=== PATIENT | female | born 1950 | race Hispanic/Latino ===

== ENCOUNTER 2018-02-24 07:04 | Day surgery (SDC) | payer MEDICARE, BC ==
[2016-07-03 08:42] VITALS: BMI 20.6
[2018-02-24] MEDS ORDERED: Propofol 10 mg/ml Inj (20 ML) ONE ×2 (08:33→08:54)
[2018-02-24 08:39] VITALS: O2SAT 100
[2018-02-24] MEDS ORDERED: Sodium Chloride 0.9% 1,000 ML IV SCH (09:30)
[2018-02-24 10:46] VITALS: BP 122/72; PULSE 64; RESP 16; TEMP 97.6
== END 2018-02-24 10:35 | disposition home or self-care (01) ==
LOC: ENDO 07:04
PROVIDERS: ATTEND Specialist
DX: Z12.11 Encounter for screening for malignant neoplasm of colon (principal); K63.5 Polyp of colon; Z86.010 Personal history of colon polyps; K64.8 Other hemorrhoids
CPT/HCPCS: 45380; 88305; J2704; J7030; J7040